=== PATIENT | male | born 1950 | race Caucasian/White ===

== ENCOUNTER 2021-11-30 11:53 | Emergency (ER) | payer BC, MEDICARE ==
[2021-11-30] MEDS ORDERED: diphenhydrAMINE 50 MG/ML SDV IM ONE (12:54)
[2021-11-30] MEDS ORDERED: Ketorolac 30 MG/ML SDV IM ONE (12:54)
== END 2021-11-30 13:25 | disposition home or self-care (01) ==
LOC: DL.ED 11:53
DX: U07.1 COVID-19 (principal); G44.89 Other headache syndrome
CPT/HCPCS: 96372; 99283; J1200; J1885